=== PATIENT | male | born 1945 | race Asian ===

== ENCOUNTER 2025-09-30 08:26 | Outpatient (CLI) | payer BC ==
[2025-09-30 09:26] LABS: Estimated GFR - POC 90.0
== END 2025-09-30 08:27 | disposition home or self-care (01) ==
LOC: CSHMRI 08:26
PROVIDERS: ATTEND Internal Medicine Gastroenterology
DX: R74.8 Abnormal levels of other serum enzymes (principal); Z80.0 Family history of malignant neoplasm of digestive organs; K83.8 Other specified diseases of biliary tract
CPT/HCPCS: 36415; 74183; 82565